=== PATIENT | male | born 1995 ===

== ENCOUNTER 2018-05-29 22:59 | Emergency (ER) | payer BC ==
[2018-05-29 23:21] VITALS: BP 160/97; PULSE 75; RESP 20; TEMP 99.1; O2SAT 97
--- NOTE | 2018-05-30 00:08 | ED PDOC ---
HPI: Psych/Substance Abuse Time Seen by Provider: 05/29/18 23:25 Chief Complaint (Nursing): Psychiatric Evaluation Chief Complaint (Provider): crisis eval History Per: Patient Additional Complaint(s): 23 y/o male presents for crisis evaluation. Patient states for the last 5 days he has been feeling "overwhelmed" and "stressed" at work because they are trying to get rid of all the "old" people and hire "new" people. Patient denies feeling depressed, suicidal or homicidal. Patient denies acute physical complaints. Past Medical History Reviewed: Historical Data, Nursing Documentation, Vital Signs Vital Signs: Last Vital Signs Temp 99.1 F 05/29/18 23:17 Pulse 75 05/29/18 23:17 Resp 20 05/29/18 23:17 BP 160/97 H 05/29/18 23:17 Pulse Ox 97 05/29/18 23:17 - Medical History PMH: No Chronic Diseases - Surgical History Surgical History: No Surg Hx - Family History Family History: States: No Known Family Hx - Living Arrangements Living Arrangements: With Family - Social History Current smoker - smoking cessation education provided: No Alcohol: Occasional Drugs: Cannabis - Home Medications Home Medications: Ambulatory Orders Medication Instructions Recorded hydrOXYzine HCl [Atarax] 50 mg PO TID PRN #15 tab 05/30/18 - Allergies Allergies/Adverse Reactions: Allergies Allergy/AdvReac Type Severity Reaction Status Date / Time No Known Allergies Allergy Verified 05/29/18 23:21 Review of Systems ROS Statement: Except As Marked, All Systems Reviewed And Found Negative Psych: Positive for: Anxiety Physical Exam - Reviewed Nursing Documentation Reviewed: Yes Vital Signs Reviewed: Yes - Physical Exam Appears: Positive for: Well, Non-toxic, No Acute Distress Head Exam: Positive for: ATRAUMATIC, NORMAL INSPECTION, NORMOCEPHALIC Skin: Positive for: Normal Color Eye Exam: Positive for: Normal appearance ENT: Positive for: Normal ENT Inspection Cardiovascular/Chest: Positive for: Regular Rate, Rhythm Respiratory: Positive for: Normal Breath Sounds Gastrointestinal/Abdominal: Positive for: Normal Exam Back: Positive for: Normal Inspection Extremity: Positive for: Normal ROM Neurologic/Psych: Positive for: Alert, Oriented (x3) - ECG O2 Sat by Pulse Oximetry: 97 - Progress ED Course And Treament: Patient evaluated by nutrition worker; does not meet criteria for admission at this time as per Dr. Alexandra. Information given for outpatient follow up Patient requesting rx for anxiety; trial hydroxyzine given Advised follow up mental health clinic as scheduled Return precautions given Disposition - Clinical Impression Clinical Impression: Anxiety - Patient ED Disposition Is Patient to be Admitted: No Counseled Patient/Family Regarding: Diagnosis, Need For Followup, Rx Given - Disposition Disposition: Routine/Home Disposition Time: 01:56 Condition: IMPROVED Prescriptions: hydrOXYzine HCl [Atarax] 50 mg PO TID PRN #15 tab PRN Reason: Anxiety Instructions: Anxiety, Adult (DC) Forms: [facility] ([place]), [facility] ED School/Work Excuse
== END 2018-05-30 02:15 | disposition home or self-care (01) ==
LOC: H.ER 22:59
DX: F41.9 Anxiety disorder, unspecified (principal); Z00.8 Encounter for other general examination